=== PATIENT | female | born 1930 | race African-American/Black ===

== ENCOUNTER 2017-02-09 10:11 | Inpatient (IN) | payer MEDICARE, BC ==
[2017-02-09] VITALS (8 sets, daily range): BP systolic 89–112; BP diastolic 30–93
[~2017-02-09] VITALS: Ht 162.6 cm; Wt 67.1 kg
[~2017-02-09 10:11] MED LIST: DOXA1TAB2 PO; LINA145C PO; LORA10TA7 PO; NEBI10TA2 PO; NIFE30TA94 PO; SIMV20TA6 PO
[2017-02-09 11:06] LABS: BASOPHILS % 0.9 % (0.0-2.0); EOSINOPHILS % 0.2 % (0.0-5.0); HEMATOCRIT. 23.5 % (36.0-48.0); HEMOGLOBIN. 7.3 g/dL (12.0-16.0); LYMPHOCYTES % 43.1 % (20.0-50.0); MEAN CORPUSCULAR VOLUME 83.6 fL (81.0-99.0); MEAN PLATELET VOLUME 7.5 fl (7.4-10.4); MONOCYTES % 5.7 % (2.0-8.0); NEUTROPHILS % 50.1 % (40.0-76.0); PLATELET 181 x1000/uL (130-400); RED BLOOD CELL COUNT 2.81 mill/uL (4.2-5.4); RED CELL DISTRIBUTION WIDTH 18.5 % (11.6-14.6)
[2017-02-09 11:19] LABS: CARBON DIOXIDE 31 mEq/L (21-32); CHLORIDE 94 mEq/L (98-107)
[2017-02-09] MEDS: FLUTICASONE PROPIONATE 50MCG/SPRAY BOTTLE BOTHNSTRLS SCH (17:14)
[2017-02-09] MEDS: SEVELAMER CARBONATE 800 MG TABLET PO SCH (17:14)
[2017-02-09] MEDS: CALCIUM ACETATE 667MG CAPSULE PO SCH (17:14)
[2017-02-09] MEDS: LORATADINE 10MG TABLET PO SCH (17:15)
[2017-02-09] MEDS: ACETAMINOPHEN 325MG TABLET PO PRN (17:15)
[2017-02-09] MEDS: FUROSEMIDE 80MG TABLET PO SCH (17:15)
[2017-02-09] MEDS: NEBIVOLOL HCL 5 MG TABLET PO SCH (21:00)
[2017-02-09] MEDS: ATORVASTATIN CALCIUM 20MG TABLET PO SCH (22:27)
[2017-02-10 04:00] VITALS: BP 106/40
[2017-02-10 06:51] LABS: HEMATOCRIT. 25.9 % (36.0-48.0); HEMOGLOBIN. 8.2 g/dL (12.0-16.0); MEAN CORPUSCULAR HEMOGLOBIN 26.1 pg (28.0-32.0); MEAN CORPUSCULAR VOLUME 82.1 fL (81.0-99.0); MEAN PLATELET VOLUME 7.5 fl (7.4-10.4); PLATELET 172 x1000/uL (130-400); RED BLOOD CELL COUNT 3.16 mill/uL (4.2-5.4); RED CELL DISTRIBUTION WIDTH 17.4 % (11.6-14.6)
[2017-02-10 07:27] LABS: T4 FREE 1.23 ng/dL (0.76-1.46)
[2017-02-10 08:00] VITALS: BP 101/43
[2017-02-10] MEDS: NEBIVOLOL HCL 5 MG TABLET PO SCH ×2 (08:27→20:38)
[2017-02-10] MEDS: NIFEDIPINE XL 90MG TAB PO SCH (08:27)
[2017-02-10] MEDS: CALCIUM ACETATE 667MG CAPSULE PO SCH ×3 (08:33→18:13)
[2017-02-10] MEDS: LORATADINE 10MG TABLET PO SCH (08:33)
[2017-02-10] MEDS: FOLIC ACID/VITAMIN B COMP W-C TABLET PO SCH (08:33)
[2017-02-10] MEDS: SEVELAMER CARBONATE 800 MG TABLET PO SCH ×3 (08:33→18:13)
[2017-02-10] MEDS: FLUTICASONE PROPIONATE 50MCG/SPRAY BOTTLE BOTHNSTRLS SCH (08:34)
[2017-02-10] MEDS: FUROSEMIDE 80MG TABLET PO SCH (09:00)
[2017-02-10 13:25] LABS: PLATELET ESTIMATE NORMAL
[2017-02-10 16:00] VITALS: BP 111/35
[2017-02-10] MEDS: ACETAMINOPHEN 325MG TABLET PO PRN (18:13)
[2017-02-10 20:00] VITALS: BP 108/55
[2017-02-10] MEDS: ATORVASTATIN CALCIUM 20MG TABLET PO SCH (21:10)
[2017-02-11] VITALS (9 sets, daily range): BP systolic 109–162; BP diastolic 43–83
[2017-02-11 07:22] LABS: HEMATOCRIT. 25.7 % (36.0-48.0); HEMOGLOBIN. 8.1 g/dL (12.0-16.0); MEAN CORPUSCULAR VOLUME 82.6 fL (81.0-99.0); MEAN PLATELET VOLUME 7.3 fl (7.4-10.4); PLATELET 164 x1000/uL (130-400); RED BLOOD CELL COUNT 3.12 mill/uL (4.2-5.4); RED CELL DISTRIBUTION WIDTH 17.6 % (11.6-14.6)
[2017-02-11] MEDS: SEVELAMER CARBONATE 800 MG TABLET PO SCH ×3 (09:00→18:14)
[2017-02-11] MEDS: FUROSEMIDE 80MG TABLET PO SCH (09:00)
[2017-02-11] MEDS: NIFEDIPINE XL 90MG TAB PO SCH (09:00)
[2017-02-11] MEDS: FLUTICASONE PROPIONATE 50MCG/SPRAY BOTTLE BOTHNSTRLS SCH (09:00)
[2017-02-11] MEDS: NEBIVOLOL HCL 5 MG TABLET PO SCH ×2 (09:00→21:22)
[2017-02-11] MEDS: CALCIUM ACETATE 667MG CAPSULE PO SCH ×3 (09:00→18:14)
[2017-02-11] MEDS: FOLIC ACID/VITAMIN B COMP W-C TABLET PO SCH (09:25)
[2017-02-11] MEDS: LORATADINE 10MG TABLET PO SCH (09:25)
[2017-02-11 16:53] LABS: PLATELET ESTIMATE NORMAL
[2017-02-11] MEDS ORDERED: EPOETIN ALFA 10000UNITS/ML VIAL SUBCUT SCH (21:00)
[2017-02-11] MEDS: ATORVASTATIN CALCIUM 20MG TABLET PO SCH (21:22)
[2017-02-12] VITALS: BP 134/44
[2017-02-12 04:00] VITALS: BP 123/42
[2017-02-12 06:39] LABS: HEMOGLOBIN. 8.9 g/dL (12.0-16.0); MEAN CORPUSCULAR HEMOGLOBIN 26.5 pg (28.0-32.0); MEAN CORPUSCULAR VOLUME 83.8 fL (81.0-99.0); MEAN PLATELET VOLUME 7.4 fl (7.4-10.4); PLATELET 138 x1000/uL (130-400); RED BLOOD CELL COUNT 3.34 mill/uL (4.2-5.4)
[2017-02-12] MEDS: CALCIUM ACETATE 667MG CAPSULE PO SCH ×3 (07:40→18:04)
[2017-02-12] MEDS: SEVELAMER CARBONATE 800 MG TABLET PO SCH ×3 (07:40→18:04)
[2017-02-12 08:00] VITALS: BP 136/57
[2017-02-12] MEDS: FUROSEMIDE 80MG TABLET PO SCH (09:00)
[2017-02-12] MEDS: FLUTICASONE PROPIONATE 50MCG/SPRAY BOTTLE BOTHNSTRLS SCH (09:00)
[2017-02-12] MEDS: NIFEDIPINE XL 90MG TAB PO SCH (09:59)
[2017-02-12] MEDS: LORATADINE 10MG TABLET PO SCH (10:00)
[2017-02-12] MEDS: FOLIC ACID/VITAMIN B COMP W-C TABLET PO SCH (10:00)
[2017-02-12] MEDS: NEBIVOLOL HCL 5 MG TABLET PO SCH ×2 (10:00→21:00)
[2017-02-12 12:00] VITALS: BP 112/41
[2017-02-12 13:09] LABS: IMMUNOGLOBULIN A 29 mg/dL (64-422); IMMUNOGLOBULIN G 552 mg/dL (700-1600); IMMUNOGLOBULIN M 697 mg/dL (26-217)
[2017-02-12 14:34] LABS: PLATELET ESTIMATE NORMAL
[2017-02-12 16:17] VITALS: BP 114/55
[2017-02-12 20:00] VITALS: BP 111/36
[2017-02-12] MEDS: ATORVASTATIN CALCIUM 20MG TABLET PO SCH (21:30)
[2017-02-13] VITALS: BP 116/45
[2017-02-13 04:00] VITALS: BP 126/45
[2017-02-13] MEDS ORDERED: PROPOFOL 200MG/20ML VIAL IV ONE (08:05)
[2017-02-13] MEDS ORDERED: LIDOCAINE HCL 1% 20ML VIAL (Pyxis) INJ ONE (08:05)
[2017-02-13 08:15] LABS: HEMATOCRIT. 28.1 % (36.0-48.0); HEMOGLOBIN. 9.1 g/dL (12.0-16.0); MEAN CORPUSCULAR HEMOGLOBIN 27.2 pg (28.0-32.0); MEAN CORPUSCULAR VOLUME 83.8 fL (81.0-99.0); MEAN PLATELET VOLUME 7.4 fl (7.4-10.4); PLATELET 130 x1000/uL (130-400); RED BLOOD CELL COUNT 3.35 mill/uL (4.2-5.4); RED CELL DISTRIBUTION WIDTH 17.3 % (11.6-14.6)
[2017-02-13] MEDS ORDERED: ONDANSETRON HCL 4MG/2ML VIAL IV PRN (08:30)
[2017-02-13] MEDS ORDERED: MORPHINE SULFATE 2 MG/ML CPJ (NOT FOR IM USE) IV PRN (08:30)
[2017-02-13] MEDS ORDERED: SODIUM CHLORIDE 0.9% 1,000 ML IV SCH (08:30)
[2017-02-13] MEDS: NEBIVOLOL HCL 5 MG TABLET PO SCH ×2 (09:00→20:27)
[2017-02-13] MEDS: NIFEDIPINE XL 90MG TAB PO SCH (09:00)
[2017-02-13 10:58] VITALS: BP 123/45
[2017-02-13] MEDS: LORATADINE 10MG TABLET PO SCH (11:05)
[2017-02-13] MEDS: FOLIC ACID/VITAMIN B COMP W-C TABLET PO SCH (11:05)
[2017-02-13] MEDS: SEVELAMER CARBONATE 800 MG TABLET PO SCH ×2 (11:05→18:09)
[2017-02-13] MEDS: CALCIUM ACETATE 667MG CAPSULE PO SCH ×2 (11:05→18:09)
[2017-02-13] MEDS: FUROSEMIDE 80MG TABLET PO SCH (11:06)
[2017-02-13 11:28] VITALS: BP 121/49
[2017-02-13 15:33] VITALS: BP 116/55
[2017-02-13 19:52] VITALS: BP 117/54
[2017-02-13] MEDS: ATORVASTATIN CALCIUM 20MG TABLET PO SCH (20:26)
[2017-02-13 20:45] LABS: PLATELET ESTIMATE SLIGHTLY DECREASED
[2017-02-14 04:24] LABS: 25-HYDROXY VITAMIN D3 7.9 ng/mL (.)
[2017-03-04] MEDS ORDERED: CALC0.253 PO (09:22)
[2017-03-04] MEDS ORDERED: SEVE800T8 PO (09:22)
[2017-03-04] MEDS ORDERED: NEPVIT PO (17:07)
[2017-03-04] MEDS ORDERED: CALC667T5 PO (17:07)
[2017-03-04] MEDS ORDERED: DULCOEASE PO (17:17)
[2017-03-04] MEDS ORDERED: DEXT15DR5 EACHEYE (17:17)
[2017-03-04] MEDS ORDERED: FLUT9.9S NS (17:17)
== END 2017-02-13 20:40 | disposition home or self-care (01) | DRG 811 ==
LOC: ER 10:11 → EDBEDREQ 11:39 → EDBEDREQTM 11:39 → 8WST 12:21 → ENRESERV 13:51 → 8WST 14:44
PROVIDERS: ADMIT Internal Medicine Pulmonary Disease; ATTEND Internal Medicine Pulmonary Disease
PROC: 30233N1 Transfusion of Nonautologous Red Blood Cells into Peripheral Vein, Percutaneous Approach (ICD-10-PCS; principal; 2017-02-09)
PROC: 07DQ3ZZ Extraction of Sternum Bone Marrow, Percutaneous Approach (ICD-10-PCS; 2017-02-13)
DX: D46.9 Myelodysplastic syndrome, unspecified (principal); N18.6 End stage renal disease; I13.2 Hypertensive heart and chronic kidney disease with heart failure and with stage 5 chronic kidney disease, or end stage renal disease; E46 Unspecified protein-calorie malnutrition; C85.90 Non-Hodgkin lymphoma, unspecified, unspecified site; D58.9 Hereditary hemolytic anemia, unspecified; I42.9 Cardiomyopathy, unspecified; N03.9 Chronic nephritic syndrome with unspecified morphologic changes; R71.0 Precipitous drop in hematocrit; D64.9 Anemia, unspecified; E74.39 Other disorders of intestinal carbohydrate absorption; D72.829 Elevated white blood cell count, unspecified; H91.90 Unspecified hearing loss, unspecified ear; I50.9 Heart failure, unspecified; M10.9 Gout, unspecified; Z82.49 Family history of ischemic heart disease and other diseases of the circulatory system; Z85.528 Personal history of other malignant neoplasm of kidney; Z90.5 Acquired absence of kidney; Z90.710 Acquired absence of both cervix and uterus; Z99.2 Dependence on renal dialysis; Z88.0 Allergy status to penicillin; Z88.1 Allergy status to other antibiotic agents; Z79.899 Other long term (current) drug therapy; Z68.25 Body mass index [BMI] 25.0-25.9, adult
CPT/HCPCS: 36415; 71010; 80048; 80053; 80076; 82270; 82306; 82784; 83010; 83615; 83880; 84134; 84439; 84443; 84550; 85025; 85044; 86334; 86850; 86880; 86900; 86920; 87040; 93005; 97161; 97165; 99285; J0885; J2704; J3490; J7030; J7050; P9016

== ENCOUNTER 2017-03-27 09:34 | Emergency (ER) | payer MEDICARE, BC ==
[~2017-03-27] VITALS: Ht 162.6 cm; Wt 62.0 kg
[~2017-03-27 09:34] MED LIST changes: +CALC0.253 PO; +CALC667T5 PO; +DEXT15DR5 EACHEYE; +DULCOEASE PO; +FLUT9.9S NS; +NEPVIT PO; +SEVE800T8 PO
[2017-03-27] MEDS ORDERED: PANTOPRAZOLE SODIUM 40 MG/VIAL IV ONE (10:15)
[2017-03-27 10:52] LABS: INR 1.2; PARTIAL THROMBOPLASTIN TIME 25.7 sec (23.4-31.0); PROTHROMBIN TIME 12.2 sec (9.4-11.6)
[2017-03-27 10:53] LABS: HEMATOCRIT. 27.7 % (36.0-48.0); HEMOGLOBIN. 8.6 g/dL (12.0-16.0); MEAN CORPUSCULAR HEMOGLOBIN 26.7 pg (28.0-32.0); MEAN CORPUSCULAR VOLUME 86.4 fL (81.0-99.0); MEAN PLATELET VOLUME 7.8 fl (7.4-10.4); PLATELET 83 x1000/uL (130-400); RED BLOOD CELL COUNT 3.21 mill/uL (4.2-5.4); RED CELL DISTRIBUTION WIDTH 17.6 % (11.6-14.6)
[2017-03-27 11:02] LABS: CARBON DIOXIDE 33 mEq/L (21-32); CHLORIDE 95 mEq/L (98-107); PHOSPHORUS 1.3 mg/dL (2.5-4.9); TOTAL IRON BINDING CAPACITY 101 ug/dL (250-450)
[2017-03-27 12:59] LABS: PLATELET ESTIMATE DECREASED
[2017-03-27 13:00] VITALS: BP 129/83
== END 2017-03-27 13:14 | disposition home or self-care (01) ==
LOC: ER 09:50 → CANBEDREQ 13:21
DX: K62.5 Hemorrhage of anus and rectum (principal); D63.1 Anemia in chronic kidney disease; I12.9 Hypertensive chronic kidney disease with stage 1 through stage 4 chronic kidney disease, or unspecified chronic kidney disease; N18.6 End stage renal disease; Z88.0 Allergy status to penicillin; Z88.1 Allergy status to other antibiotic agents; Z99.2 Dependence on renal dialysis
CPT/HCPCS: 36415; 71010; 80053; 83540; 83550; 83605; 83690; 83735; 84100; 85025; 85044; 85610; 85730; 86850; 86900; 86901; 87040; 93005; 96374; 99285; C9113

== ENCOUNTER 2017-04-11 14:44 | Inpatient (IN) | payer MEDICARE, BC ==
[~2017-04-11] VITALS: Ht 160 cm; Wt 63.5 kg
[2017-04-11 16:59] LABS: INR 1.3; PROTHROMBIN TIME 13.6 sec (9.4-11.6)
[2017-04-11 17:01] LABS: CARBON DIOXIDE 34 mEq/L (21-32); CHLORIDE 94 mEq/L (98-107)
[2017-04-11 17:03] LABS: MEAN CORPUSCULAR HEMOGLOBIN 27.4 pg (28.0-32.0); MEAN CORPUSCULAR VOLUME 89.4 fL (81.0-99.0); MEAN PLATELET VOLUME 8.9 fl (7.4-10.4); PLATELET 93 x1000/uL (130-400); RED BLOOD CELL COUNT 2.34 mill/uL (4.2-5.4); RED CELL DISTRIBUTION WIDTH 18.9 % (11.6-14.6)
[2017-04-11 17:10] LABS: HEMOGLOBIN. 6.4 g/dL (12.0-16.0)
[2017-04-11 17:11] LABS: HEMATOCRIT. 20.9 % (36.0-48.0)
[2017-04-11 17:32] LABS: ATYPICAL LYMPHOCYTES 2; PLATELET ESTIMATE DECREASED
[2017-04-12] VITALS (8 sets, daily range): BP systolic 93–144; BP diastolic 29–79
[2017-04-12] MEDS ORDERED: DULCOEASE PO SCH (01:30)
[2017-04-12] MEDS ORDERED: ACETAMINOPHEN 325MG TABLET PO PRN (02:00)
[2017-04-12] MEDS ORDERED: ZOLPIDEM TARTRATE 5MG TABLET PO PRN (02:00)
[2017-04-12] MEDS ORDERED: DOCUSATE SODIUM 100MG CAPSULE PO PRN (03:00)
[2017-04-12 07:33] LABS: MEAN CORPUSCULAR HEMOGLOBIN 27.4 pg (28.0-32.0); MEAN CORPUSCULAR VOLUME 86.6 fL (81.0-99.0); MEAN PLATELET VOLUME 8.1 fl (7.4-10.4); PLATELET 65 x1000/uL (130-400); RED BLOOD CELL COUNT 2.34 mill/uL (4.2-5.4); RED CELL DISTRIBUTION WIDTH 17.6 % (11.6-14.6)
[2017-04-12 07:36] LABS: HEMATOCRIT. 20.2 % (36.0-48.0); HEMOGLOBIN. 6.4 g/dL (12.0-16.0)
[2017-04-12] MEDS: NEBIVOLOL HCL 5 MG TABLET PO SCH (08:10)
[2017-04-12] MEDS: FOLIC ACID/VITAMIN B COMP W-C TABLET PO SCH (08:15)
[2017-04-12] MEDS: LORATADINE 10MG TABLET PO SCH (08:16)
[2017-04-12] MEDS: POLYVINYL ALCOHOL OPHTH DROPS 15ML EACHEYE SCH (08:16)
[2017-04-12] MEDS: FLUTICASONE PROPIONATE 50MCG/SPRAY BOTTLE BOTHNSTRLS SCH (08:18)
[2017-04-12] MEDS ORDERED: MEDICATION NOT ON FORMULARY EA (Fluticasone Propionate (Flonase Allergy Relief) 2 SPR) NS SCH (09:00)
[2017-04-12] MEDS ORDERED: DEXTRAN EACHEYE SCH (09:00)
[2017-04-12] MEDS ORDERED: NEBIVOLOL HCL 20 MG PO SCH (09:00)
[2017-04-12] MEDS ORDERED: [UNRECOGNIZED DRUG - OTHER] EACHEYE SCH (09:00)
[2017-04-12] MEDS ORDERED: MEDICATION NOT ON FORMULARY EA (Nebivolol Hcl (Bystolic) 10 MG) PO SCH (09:00)
[2017-04-12 10:57] LABS: PLATELET ESTIMATE DECREASED
[2017-04-12] MEDS: NIFEDIPINE XL 90MG TAB PO SCH (17:15)
[2017-04-12] MEDS: DOXAZOSIN MESYLATE 2MG TABLET PO SCH (17:16)
[2017-04-12] MEDS ORDERED: MEDICATION NOT ON FORMULARY EA (Doxazosin Mesylate 1 MG) PO SCH (18:00)
[2017-04-12] MEDS ORDERED: MEDICATION NOT ON FORMULARY EA (Simvastatin 20 MG) PO SCH (18:00)
[2017-04-12] MEDS: ATORVASTATIN CALCIUM 10MG TABLET PO SCH (22:08)
[2017-04-13] VITALS (9 sets, daily range): BP systolic 119–138; BP diastolic 40–79
[2017-04-13 07:00] LABS: HEMATOCRIT 23.6 % (36.0-48.0); HEMATOCRIT. 23.6 % (36.0-48.0); HEMOGLOBIN 7.6 g/dL (12.0-16.0); MEAN CORPUSCULAR HEMOGLOBIN 27.8 pg (28.0-32.0); MEAN CORPUSCULAR VOLUME 86.4 fL (81.0-99.0); MEAN PLATELET VOLUME 8.3 fl (7.4-10.4); PLATELET 63 x1000/uL (130-400); RED BLOOD CELL COUNT 2.73 mill/uL (4.2-5.4); RED CELL DISTRIBUTION WIDTH 18.7 % (11.6-14.6)
[2017-04-13 07:28] LABS: HEMOGLOBIN. 7.6 g/dL (12.0-16.0)
[2017-04-13] MEDS: NEBIVOLOL HCL 5 MG TABLET PO SCH (09:00)
[2017-04-13] MEDS: POLYVINYL ALCOHOL OPHTH DROPS 15ML EACHEYE SCH (09:25)
[2017-04-13] MEDS: LORATADINE 10MG TABLET PO SCH (09:33)
[2017-04-13] MEDS: FOLIC ACID/VITAMIN B COMP W-C TABLET PO SCH (09:33)
[2017-04-13] MEDS: FLUTICASONE PROPIONATE 50MCG/SPRAY BOTTLE BOTHNSTRLS SCH (09:35)
[2017-04-13 10:08] LABS: ATYPICAL LYMPHOCYTES 1
[2017-04-13 10:09] LABS: PLATELET ESTIMATE MARKEDLY DECREASED
[2017-04-13] MEDS: DOXAZOSIN MESYLATE 2MG TABLET PO SCH (17:41)
[2017-04-13] MEDS: NIFEDIPINE XL 90MG TAB PO SCH (17:42)
[2017-04-13] MEDS: ATORVASTATIN CALCIUM 10MG TABLET PO SCH (20:37)
[2017-04-14 00:22] VITALS: BP 143/54
[2017-04-14 01:22] VITALS: BP 141/52
[2017-04-14 06:39] LABS: HEMATOCRIT 27.7 % (36.0-48.0); HEMOGLOBIN 8.8 g/dL (12.0-16.0); MEAN CORPUSCULAR VOLUME 85.1 fL (81.0-99.0); PLATELET 65 x1000/uL (130-400); RED BLOOD CELL COUNT 3.26 mill/uL (4.2-5.4); RED CELL DISTRIBUTION WIDTH 18.3 % (11.6-14.6)
[2017-04-14 08:00] VITALS: BP 133/49
[2017-04-14] MEDS: FLUTICASONE PROPIONATE 50MCG/SPRAY BOTTLE BOTHNSTRLS SCH (10:12)
[2017-04-14] MEDS: POLYVINYL ALCOHOL OPHTH DROPS 15ML EACHEYE SCH (10:12)
[2017-04-14] MEDS: LORATADINE 10MG TABLET PO SCH (10:13)
[2017-04-14] MEDS: NEBIVOLOL HCL 5 MG TABLET PO SCH (10:13)
[2017-04-14] MEDS: FOLIC ACID/VITAMIN B COMP W-C TABLET PO SCH (10:13)
[2017-04-14 11:28] VITALS: BP 133/49
[2017-04-14 12:00] VITALS: BP 139/53
== END 2017-04-14 15:30 | disposition home or self-care (01) | DRG 840 ==
LOC: ER 15:34 → 8WST 19:44 → ENRESERV 19:56 → 8WST 04-13 08:44
PROVIDERS: ADMIT Internal Medicine; ATTEND Internal Medicine
PROC: 30233N1 Transfusion of Nonautologous Red Blood Cells into Peripheral Vein, Percutaneous Approach (ICD-10-PCS; principal; 2017-04-11)
DX: C85.90 Non-Hodgkin lymphoma, unspecified, unspecified site (principal); N18.6 End stage renal disease; I12.0 Hypertensive chronic kidney disease with stage 5 chronic kidney disease or end stage renal disease; N03.9 Chronic nephritic syndrome with unspecified morphologic changes; D63.8 Anemia in other chronic diseases classified elsewhere; Z99.2 Dependence on renal dialysis; H91.90 Unspecified hearing loss, unspecified ear; K62.3 Rectal prolapse; M19.90 Unspecified osteoarthritis, unspecified site; E66.9 Obesity, unspecified; Z85.528 Personal history of other malignant neoplasm of kidney; Z86.010 Personal history of colon polyps; Z90.5 Acquired absence of kidney; Z90.710 Acquired absence of both cervix and uterus; Z79.899 Other long term (current) drug therapy; Z88.0 Allergy status to penicillin; Z88.8 Allergy status to other drugs, medicaments and biological substances; Z68.24 Body mass index [BMI] 24.0-24.9, adult
CPT/HCPCS: 36415; 80048; 80053; 83540; 83550; 85025; 85027; 85610; 86850; 86900; 86920; 93970; 99285; A6261; C1893; J7030; J7040; P9016

== ENCOUNTER 2017-05-02 23:00 | Inpatient (IN) | payer MEDICARE, BC ==
[~2017-05-02] VITALS: Ht 162.6 cm; Wt 63.5 kg
[~2017-05-02 23:00] MED LIST changes: -CALC0.253 PO; -CALC667T5 PO; -SEVE800T8 PO
[2017-05-02] MEDS ORDERED: NITROGLYCERIN 0.4MG TABLET SL SL PRN (23:15)
[2017-05-02] MEDS ORDERED: ASPIRIN 81MG TABLET PO ONE (23:15)
[2017-05-02 23:41] LABS: BG BASE EXCESS -4.6 mmol/L (-2.0-2.0); BG CARBOXYHEMOGLOBIN 0.6 % (0.5-1.5); BG DEOXYHEMOGLOBIN 1.4 % (0.0-5.0); BG FRACTION INSPIRED OXYGEN 100; BG HCO3 ACT 20.2 mmol/L (22.0-26.0); BG METHEMOGLOBIN 0.7 % (0.0-1.5); BG OXYGEN SATURATION 98.6 % (92.0-98.5); BG OXYHEMOGLOBIN 97.3 % (94.0-97.0); BG PCO2 35.8 mmHg (35.0-45.0); BG PH 7.369 (7.350-7.450); BG PO2 133.4 mmHg (75.0-100.0); BG SAMPLE SITE RIGHT BRACHIAL; BG TOTAL HEMOGLOBIN 7.8 g/dL (12.0-18.0); BG VENT MODE MASK - NRB
[2017-05-03 00:09] LABS: HEMATOCRIT. 23.9 % (36.0-48.0); HEMOGLOBIN. 7.1 g/dL (12.0-16.0); MEAN CORPUSCULAR HEMOGLOBIN 27.7 pg (28.0-32.0); MEAN CORPUSCULAR VOLUME 93.4 fL (81.0-99.0); MEAN PLATELET VOLUME 8.4 fl (7.4-10.4); PLATELET 53 x1000/uL (130-400); RED BLOOD CELL COUNT 2.56 mill/uL (4.2-5.4); RED CELL DISTRIBUTION WIDTH 20.3 % (11.6-14.6)
[2017-05-03 00:18] LABS: INR 1.2; PROTHROMBIN TIME 12.9 sec (9.4-11.6)
[2017-05-03 00:28] LABS: CARBON DIOXIDE 28 mEq/L (21-32); CHLORIDE 94 mEq/L (98-107); TROPONIN I < 0.02 ng/mL (0.00-0.04)
[2017-05-03] MEDS ORDERED: ALBUTEROL (0.5%) 2.5MG/0.5ML NEB HHN ONE (01:45)
[2017-05-03 07:04] LABS: ATYPICAL LYMPHOCYTES 7; PLATELET ESTIMATE DECREASED
[2017-05-03] MEDS ORDERED: DOCUSATE SODIUM 100MG CAPSULE PO PRN (11:15)
[2017-05-03] MEDS ORDERED: CLONIDINE 0.1MG TABLET PO PRN (11:15)
[2017-05-03] MEDS ORDERED: MAGNESIUM/ALUMINUM HYDROXIDE/SIMETHICONE 30ML UDC PO PRN (11:15)
[2017-05-03] MEDS ORDERED: ENOXAPARIN 40MG/0.4ML SYR SUBCUT SCH (11:15)
[2017-05-03] MEDS ORDERED: HYDROCODONE/ACETAMINOPHEN 5/325MG TABLET PO PRN (11:15)
[2017-05-03] MEDS ORDERED: IPRATROPIUM/ALBUTEROL 0.5-3(2.5)MG/3ML NEB INH PRN (11:15)
[2017-05-03] MEDS ORDERED: ACETAMINOPHEN 650MG SUPP PR PRN (11:15)
[2017-05-03] MEDS ORDERED: DIPHENHYDRAMINE 50MG/ML VIAL IV PRN (11:15)
[2017-05-03] MEDS ORDERED: ONDANSETRON HCL 4MG/2ML VIAL IV PRN (11:15)
[2017-05-03] MEDS ORDERED: GUAIFENESIN 200MG/10ML SUGAR FREE UDC PO PRN (11:15)
[2017-05-03] MEDS ORDERED: ACETAMINOPHEN 650MG/20.3ML UDC GT PRN (11:15)
[2017-05-03 11:53] LABS: T4 FREE 1.16 ng/dL (0.76-1.46)
[2017-05-03 14:39] LABS: CREATINE KINASE MB FRACTION 0.5 ng/mL (0.5-3.6); TROPONIN I 0.07 ng/mL (0.00-0.04)
[2017-05-03 18:31] LABS: MEAN CORPUSCULAR HEMOGLOBIN 28.1 pg (28.0-32.0); MEAN CORPUSCULAR VOLUME 90.7 fL (81.0-99.0); MEAN PLATELET VOLUME 8.2 fl (7.4-10.4); RED BLOOD CELL COUNT 2.03 mill/uL (4.2-5.4)
[2017-05-03 18:36] LABS: HEMATOCRIT. 18.4 % (36.0-48.0); PLATELET 34 x1000/uL (130-400)
[2017-05-03 18:36] LABS: BG BASE EXCESS 6.8 mmol/L (-2.0-2.0); BG CARBOXYHEMOGLOBIN 0.7 % (0.5-1.5); BG DEOXYHEMOGLOBIN 1.8 % (0.0-5.0); BG FRACTION INSPIRED OXYGEN 28; BG HCO3 ACT 30.9 mmol/L (22.0-26.0); BG METHEMOGLOBIN 0.7 % (0.0-1.5); BG OXYGEN SATURATION 98.2 % (92.0-98.5); BG OXYHEMOGLOBIN 96.8 % (94.0-97.0); BG PCO2 42.6 mmHg (35.0-45.0); BG PH 7.479 (7.350-7.450); BG PO2 109.1 mmHg (75.0-100.0); BG SAMPLE SITE RIGHT BRACHIAL; BG TOTAL HEMOGLOBIN 6.4 g/dL (12.0-18.0); BG VENT MODE NASAL CANNULA
[2017-05-03 18:37] LABS: CHLORIDE 97 mEq/L (98-107); HEMOGLOBIN. 5.7 g/dL (12.0-16.0)
[2017-05-03 18:46] LABS: CARBON DIOXIDE 30 mEq/L (21-32)
[2017-05-03 20:01] LABS: PLATELET ESTIMATE MARKEDLY DECREASED
[2017-05-03 20:30] VITALS: BP 109/41
[2017-05-03 20:40] VITALS: BP 109/41
[2017-05-03] MEDS: INSULIN LISPRO 100 UNITS/ML SUBCUT SCH (21:00)
[2017-05-03] MEDS: BLOOD SUGAR DIAGNOSTIC STRIP TEST SCH (21:00)
[2017-05-03] MEDS ORDERED: DEXTROSE 50% WATER 50ML SYRINGE IV PRN (21:00)
[2017-05-03] MEDS: SODIUM CHLORIDE 0.9% INJ 3ML FLUSH IVF SCH (22:00)
[2017-05-03 23:47] LABS: CREATINE KINASE 21 IU/L (26-192); CREATINE KINASE MB FRACTION < 0.5 ng/mL (0.5-3.6); TROPONIN I 0.06 ng/mL (0.00-0.04)
[2017-05-04] VITALS (16 sets, daily range): BP systolic 98–122; BP diastolic 35–87
[2017-05-04] MEDS: SODIUM CHLORIDE 0.9% INJ 3ML FLUSH IVF SCH ×2 (05:19→14:00)
[2017-05-04] MEDS: INSULIN LISPRO 100 UNITS/ML SUBCUT SCH (06:12)
[2017-05-04] MEDS: BLOOD SUGAR DIAGNOSTIC STRIP TEST SCH (06:12)
[2017-05-04 07:29] LABS: HEMATOCRIT. 23.3 % (36.0-48.0); HEMOGLOBIN. 7.4 g/dL (12.0-16.0); MEAN CORPUSCULAR HEMOGLOBIN 28.6 pg (28.0-32.0); MEAN CORPUSCULAR VOLUME 89.6 fL (81.0-99.0); MEAN PLATELET VOLUME 8.7 fl (7.4-10.4); RED CELL DISTRIBUTION WIDTH 18.7 % (11.6-14.6)
[2017-05-04] MEDS: SEVELAMER CARBONATE 800 MG TABLET PO SCH ×4 (07:40→17:37)
[2017-05-04 07:58] LABS: PLATELET 40 x1000/uL (130-400)
[2017-05-04] MEDS: FOLIC ACID/VITAMIN B COMP W-C TABLET PO SCH ×2 (08:08→17:32)
[2017-05-04 08:16] LABS: CHLORIDE 96 mEq/L (98-107)
[2017-05-04 08:26] LABS: CARBON DIOXIDE 28 mEq/L (21-32); CREATINE KINASE 21 IU/L (26-192); CREATINE KINASE MB FRACTION < 0.5 ng/mL (0.5-3.6); HDL CHOLESTEROL 21 mg/dL (40-59); LDL CHOLESTEROL 122 mg/dL (5-100); TROPONIN I 0.05 ng/mL (0.00-0.04)
[2017-05-04 10:47] LABS: PLATELET ESTIMATE MARKEDLY DECREASED
[2017-05-04] MEDS ORDERED: CEFTRIAXONE 1 G PREMIX 50 ML IV SCH (11:15)
[2017-05-04] MEDS: ACETAMINOPHEN 325MG TABLET PO PRN (12:13)
[2017-05-04] MEDS ORDERED: LEVOFLOXACIN 250MG PREMIX 50 ML IV SCH (18:30)
[2017-05-05] VITALS: BP 126/43
[2017-05-05] MEDS: LEVOFLOXACIN 250MG PREMIX 50 ML IV SCH (00:21)
[2017-05-05] MEDS: SODIUM CHLORIDE 0.9% INJ 3ML FLUSH IVF SCH ×4 (00:21→22:09)
[2017-05-05] MEDS: IPRATROPIUM/ALBUTEROL 0.5-3(2.5)MG/3ML NEB INH SCH ×3 (02:01→22:03)
[2017-05-05 04:00] VITALS: BP 128/39
[2017-05-05 06:30] LABS: HEMATOCRIT. 27.1 % (36.0-48.0); HEMOGLOBIN. 8.6 g/dL (12.0-16.0); MEAN CORPUSCULAR HEMOGLOBIN 26.5 pg (28.0-32.0); MEAN PLATELET VOLUME 8.3 fl (7.4-10.4); RED BLOOD CELL COUNT 3.23 mill/uL (4.2-5.4); RED CELL DISTRIBUTION WIDTH 22.9 % (11.6-14.6)
[2017-05-05 06:48] LABS: PLATELET 39 x1000/uL (130-400)
[2017-05-05 08:00] VITALS: BP 121/48
[2017-05-05 12:00] VITALS: BP 142/75
[2017-05-05] MEDS: SEVELAMER CARBONATE 800 MG TABLET PO SCH ×2 (12:50→17:40)
[2017-05-05] MEDS: CARVEDILOL 3.125 MG TABLET PO SCH ×2 (12:54→20:36)
[2017-05-05 14:26] LABS: PLATELET ESTIMATE MARKEDLY DECREASED
[2017-05-05] MEDS: ACETAMINOPHEN 325MG TABLET PO PRN (15:38)
[2017-05-05 16:00] VITALS: BP 114/39
[2017-05-05 20:13] VITALS: BP 118/40
[2017-05-05] MEDS ORDERED: EPOETIN ALFA 10000UNITS/ML VIAL SUBCUT SCH (21:00)
[2017-05-06] VITALS (7 sets, daily range): BP systolic 116–175; BP diastolic 38–78
[2017-05-06 07:22] LABS: HEMATOCRIT. 23.6 % (36.0-48.0); HEMOGLOBIN. 7.7 g/dL (12.0-16.0); MEAN CORPUSCULAR HEMOGLOBIN 27.5 pg (28.0-32.0); MEAN CORPUSCULAR VOLUME 84.3 fL (81.0-99.0); MEAN PLATELET VOLUME 8.7 fl (7.4-10.4); RED CELL DISTRIBUTION WIDTH 22.6 % (11.6-14.6)
[2017-05-06 08:31] LABS: PLATELET 31 x1000/uL (130-400)
[2017-05-06] MEDS: FOLIC ACID/VITAMIN B COMP W-C TABLET PO SCH ×2 (09:00→09:16)
[2017-05-06] MEDS: CARVEDILOL 3.125 MG TABLET PO SCH ×2 (09:00→20:39)
[2017-05-06] MEDS: SEVELAMER CARBONATE 800 MG TABLET PO SCH ×2 (09:16→17:40)
[2017-05-06] MEDS: LOSARTAN POTASSIUM 25 MG TABLET PO SCH (09:45)
[2017-05-06] MEDS: IPRATROPIUM/ALBUTEROL 0.5-3(2.5)MG/3ML NEB INH SCH (12:58)
[2017-05-06 19:18] LABS: PLATELET ESTIMATE MARKEDLY DECREASED
[2017-05-06] MEDS: LEVOFLOXACIN 250MG PREMIX 50 ML IV SCH (19:45)
[2017-05-06] MEDS: SODIUM CHLORIDE 0.9% INJ 3ML FLUSH IVF SCH (21:38)
[2017-05-07] VITALS: BP 120/39
[2017-05-07 04:00] VITALS: BP 126/40
[2017-05-07] MEDS: SODIUM CHLORIDE 0.9% INJ 3ML FLUSH IVF SCH (06:09)
[2017-05-07 06:39] LABS: HEMATOCRIT. 27.4 % (36.0-48.0); HEMOGLOBIN. 8.8 g/dL (12.0-16.0); MEAN CORPUSCULAR HEMOGLOBIN 27.1 pg (28.0-32.0); MEAN CORPUSCULAR VOLUME 84.6 fL (81.0-99.0); MEAN PLATELET VOLUME 8.3 fl (7.4-10.4); RED BLOOD CELL COUNT 3.24 mill/uL (4.2-5.4); RED CELL DISTRIBUTION WIDTH 20.9 % (11.6-14.6)
[2017-05-07 06:48] LABS: PLATELET 31 x1000/uL (130-400)
[2017-05-07] MEDS: SEVELAMER CARBONATE 800 MG TABLET PO SCH (07:40)
[2017-05-07 08:28] VITALS: BP 133/55
[2017-05-07] MEDS: IPRATROPIUM/ALBUTEROL 0.5-3(2.5)MG/3ML NEB INH SCH (08:59)
[2017-05-07] MEDS: FOLIC ACID/VITAMIN B COMP W-C TABLET PO SCH ×2 (09:00→09:03)
[2017-05-07] MEDS: CARVEDILOL 3.125 MG TABLET PO SCH (09:02)
[2017-05-07] MEDS: LOSARTAN POTASSIUM 25 MG TABLET PO SCH (09:03)
[2017-05-07 10:27] VITALS: BP 133/55
[2017-05-07 11:00] VITALS: BP 127/40
[2017-05-07 16:37] LABS: PLATELET ESTIMATE MARKEDLY DECREASED
== END 2017-05-07 11:25 | disposition home or self-care (01) | DRG 871 ==
LOC: ER 23:00 → 8WST 05-03 02:29 → ENRESERV 05-03 18:58 → 8WST 05-03 23:57
PROVIDERS: ADMIT Family Medicine; ATTEND Internal Medicine
PROC: 30233N1 Transfusion of Nonautologous Red Blood Cells into Peripheral Vein, Percutaneous Approach (ICD-10-PCS; principal; 2017-05-04)
PROC: 5A1D70Z Performance of Urinary Filtration, Intermittent, Less than 6 Hours Per Day (ICD-10-PCS; 2017-05-04)
PROC: 5A1D70Z Performance of Urinary Filtration, Intermittent, Less than 6 Hours Per Day (ICD-10-PCS; 2017-05-06)
DX: A41.9 Sepsis, unspecified organism (principal); I50.33 Acute on chronic diastolic (congestive) heart failure; J84.9 Interstitial pulmonary disease, unspecified; I13.2 Hypertensive heart and chronic kidney disease with heart failure and with stage 5 chronic kidney disease, or end stage renal disease; E11.22 Type 2 diabetes mellitus with diabetic chronic kidney disease; C85.10 Unspecified B-cell lymphoma, unspecified site; D69.6 Thrombocytopenia, unspecified; N18.6 End stage renal disease; N03.9 Chronic nephritic syndrome with unspecified morphologic changes; M19.90 Unspecified osteoarthritis, unspecified site; R06.03 Acute respiratory distress; K62.3 Rectal prolapse; E78.5 Hyperlipidemia, unspecified; D64.9 Anemia, unspecified; Z99.2 Dependence on renal dialysis; Z90.5 Acquired absence of kidney; Z90.710 Acquired absence of both cervix and uterus; Z79.899 Other long term (current) drug therapy; Z79.51 Long term (current) use of inhaled steroids; Z88.0 Allergy status to penicillin; Z88.1 Allergy status to other antibiotic agents; Z86.010 Personal history of colon polyps; Z85.528 Personal history of other malignant neoplasm of kidney
CPT/HCPCS: 36415; 36430; 36600; 71045; 80048; 80053; 80061; 82270; 82375; 82550; 82553; 82805; 83036; 83880; 84439; 84443; 84484; 85025; 85379; 85610; 86850; 86900; 86920; 87804; 93005; 93306; 93970; 94640; 97162; 99291; C1893; J0885; J1956; J7030; J7040; J7050; J7611; J7620; P9016

== ENCOUNTER 2017-05-26 13:02 | Inpatient (IN) | payer MEDICARE, BC ==
[~2017-05-26] VITALS: Ht 162.6 cm; Wt 62.1 kg
[~2017-05-26 13:02] MED LIST changes: -DEXT15DR5 EACHEYE; -DOXA1TAB2 PO; -LINA145C PO; -LORA10TA7 PO
[2017-05-26 14:32] LABS: MEAN CORPUSCULAR HEMOGLOBIN 27.7 pg (28.0-32.0); MEAN CORPUSCULAR VOLUME 85.3 fL (81.0-99.0); MEAN PLATELET VOLUME 9.2 fl (7.4-10.4); RED BLOOD CELL COUNT 1.89 mill/uL (4.2-5.4); RED CELL DISTRIBUTION WIDTH 24.1 % (11.6-14.6)
[2017-05-26 14:36] LABS: HEMATOCRIT. 16.1 % (36.0-48.0); HEMOGLOBIN. 5.2 g/dL (12.0-16.0); PLATELET 19 x1000/uL (130-400)
[2017-05-26 14:55] LABS: CHLORIDE 96 mEq/L (98-107)
[2017-05-26 15:26] LABS: PLATELET ESTIMATE MARKEDLY DECREASED
[2017-05-26] MEDS ORDERED: NITROGLYCERIN OINT 1GM/INCH UDPKT TD ONE (15:30)
[2017-05-26] MEDS ORDERED: ALLO300T2 PO (16:13)
[2017-05-27] VITALS (9 sets, daily range): BP systolic 99–138; BP diastolic 29–48
[2017-05-27] MEDS: FOLIC ACID/VITAMIN B COMP W-C TABLET PO SCH (09:00)
[2017-05-27 10:13] LABS: HEMATOCRIT. 23.6 % (36.0-48.0); HEMOGLOBIN. 7.9 g/dL (12.0-16.0); MEAN CORPUSCULAR HEMOGLOBIN 28.6 pg (28.0-32.0); MEAN CORPUSCULAR VOLUME 85.3 fL (81.0-99.0); MEAN PLATELET VOLUME 9.5 fl (7.4-10.4); RED BLOOD CELL COUNT 2.77 mill/uL (4.2-5.4); RED CELL DISTRIBUTION WIDTH 19.3 % (11.6-14.6)
[2017-05-27 10:18] LABS: PLATELET 17 x1000/uL (130-400)
[2017-05-27] MEDS ORDERED: METOCLOPRAMIDE HCL 10MG/2ML VIAL IV PRN (10:30)
[2017-05-27 10:38] LABS: T4 FREE 1.05 ng/dL (0.76-1.46)
[2017-05-27 10:39] LABS: PHOSPHORUS 3.5 mg/dL (2.5-4.9)
[2017-05-27 10:44] LABS: ATYPICAL LYMPHOCYTES 3
[2017-05-27 10:45] LABS: PLATELET ESTIMATE MARKEDLY DECREASED
[2017-05-27] MEDS ORDERED: ONDANSETRON HCL 4MG/2ML INJ IV PRN (11:00)
[2017-05-27] MEDS ORDERED: FLUTICASONE PROPIONATE 50MCG/SPRAY BOTTLE BOTHNSTRLS PRN (12:00)
[2017-05-27] MEDS: MEGESTROL ACETATE 400 MG/10 ML UDC PO SCH (13:18)
[2017-05-27] MEDS: EPOETIN ALFA 10000UNITS/ML VIAL SUBCUT SCH (20:53)
[2017-05-28] VITALS: BP 111/35
[2017-05-28 04:00] VITALS: BP 122/39
[2017-05-28 07:02] LABS: HEMATOCRIT. 26.6 % (36.0-48.0); HEMOGLOBIN. 8.8 g/dL (12.0-16.0); MEAN CORPUSCULAR HEMOGLOBIN 28.6 pg (28.0-32.0); MEAN CORPUSCULAR VOLUME 86.5 fL (81.0-99.0); MEAN PLATELET VOLUME 9.3 fl (7.4-10.4); RED BLOOD CELL COUNT 3.08 mill/uL (4.2-5.4); RED CELL DISTRIBUTION WIDTH 18.7 % (11.6-14.6)
[2017-05-28 08:00] VITALS: BP 132/38
[2017-05-28 08:01] LABS: PLATELET 17 x1000/uL (130-400)
[2017-05-28] MEDS: MEGESTROL ACETATE 400 MG/10 ML UDC PO SCH (08:25)
[2017-05-28] MEDS: FOLIC ACID/VITAMIN B COMP W-C TABLET PO SCH (08:25)
[2017-05-28] MEDS ORDERED: ALLOPURINOL 300 MG TABLET PO SCH (10:00)
[2017-05-28] MEDS ORDERED: BISACODYL 5MG TABLET PO PRN (10:00)
[2017-05-28 10:12] LABS: PLATELET ESTIMATE MARKEDLY DECREASED
[2017-05-28] MEDS: NEBIVOLOL HCL 5 MG TABLET PO SCH (10:14)
[2017-05-28 12:00] VITALS: BP 129/59
[2017-05-28 16:00] VITALS: BP 89/57
[2017-05-28] MEDS ORDERED: LACTULOSE 20G/30ML UDC PO NR (16:30)
[2017-05-28] MEDS: LEVOTHYROXINE SODIUM 25MCG TABLET PO SCH (17:21)
[2017-05-28] MEDS ORDERED: MEDICATION NOT ON FORMULARY EA (Simvastatin 20 MG) PO SCH (18:00)
[2017-05-28 20:00] VITALS: BP 128/42
[2017-05-28] MEDS: ATORVASTATIN CALCIUM 10MG TABLET PO SCH (21:59)
[2017-05-29] VITALS: BP 121/41
[2017-05-29 04:00] VITALS: BP 116/51
[2017-05-29] MEDS: LEVOTHYROXINE SODIUM 25MCG TABLET PO SCH (06:49)
[2017-05-29] MEDS ORDERED: NEBIVOLOL HCL 5 MG TABLET PO SCH (07:40)
[2017-05-29 08:00] VITALS: BP 121/40
[2017-05-29] MEDS: NEBIVOLOL HCL 5 MG TABLET PO SCH (09:00)
[2017-05-29 12:00] VITALS: BP 112/85
[2017-05-29 12:14] LABS: HEMATOCRIT. 24.8 % (36.0-48.0); HEMOGLOBIN. 8.4 g/dL (12.0-16.0); MEAN CORPUSCULAR HEMOGLOBIN 29.5 pg (28.0-32.0); MEAN CORPUSCULAR VOLUME 86.6 fL (81.0-99.0); MEAN PLATELET VOLUME 9.1 fl (7.4-10.4); RED BLOOD CELL COUNT 2.86 mill/uL (4.2-5.4); RED CELL DISTRIBUTION WIDTH 19.6 % (11.6-14.6)
[2017-05-29 12:33] LABS: PLATELET 14 x1000/uL (130-400)
[2017-05-29 13:00] LABS: PHOSPHORUS 1.5 mg/dL (2.5-4.9)
[2017-05-29 13:39] LABS: ATYPICAL LYMPHOCYTES 6
[2017-05-29 13:41] LABS: PLATELET ESTIMATE MARKEDLY DECREASED
[2017-05-29] MEDS: MEGESTROL ACETATE 400 MG/10 ML UDC PO SCH (15:53)
[2017-05-29] MEDS: FOLIC ACID/VITAMIN B COMP W-C TABLET PO SCH (15:53)
[2017-05-29] MEDS: ALLOPURINOL 100 MG TABLET PO SCH (15:53)
[2017-05-29] MEDS ORDERED: SODIUM PHOS,M-BASIC-D-BASIC 20 MM in DEXT 5% WATER 243.3333 ML IV NR (16:00)
[2017-05-29 16:12] VITALS: BP 112/85
[2017-05-29 19:55] LABS: T4 FREE 1.15 ng/dL (0.76-1.46)
[2017-05-29 20:00] VITALS: BP 114/36
[2017-05-29] MEDS: ATORVASTATIN CALCIUM 10MG TABLET PO SCH (21:10)
[2017-05-29] MEDS: EPOETIN ALFA 10000UNITS/ML VIAL SUBCUT SCH (21:11)
[2017-05-29 23:33] LABS: CREATINE KINASE 10 IU/L (26-192); CREATINE KINASE MB FRACTION < 0.5 ng/mL (0.5-3.6)
[2017-05-30] VITALS (9 sets, daily range): BP systolic 97–134; BP diastolic 32–67
[2017-05-30] MEDS ORDERED: ACETAMINOPHEN 650MG/20.3ML UDC PO SCH (02:45)
[2017-05-30] MEDS: LEVOTHYROXINE SODIUM 25MCG TABLET PO SCH (07:37)
[2017-05-30] MEDS: NEBIVOLOL HCL 5 MG TABLET PO SCH (09:00)
[2017-05-30] MEDS: MEGESTROL ACETATE 400 MG/10 ML UDC PO SCH (09:44)
[2017-05-30] MEDS: FOLIC ACID/VITAMIN B COMP W-C TABLET PO SCH (09:44)
[2017-05-30] MEDS: ALLOPURINOL 100 MG TABLET PO SCH (09:44)
[2017-05-30] MEDS ORDERED: PHENOL/SODIUM PHENOLATE 1.4% SRPAY 177ML MM ONE (10:00)
[2017-05-30] MEDS ORDERED: GUAIFENESIN-DM 200MG-20MG/10ML UDC PO PRN (10:00)
[2017-05-30 10:19] LABS: CREATINE KINASE 14 IU/L (26-192); CREATINE KINASE MB FRACTION < 0.5 ng/mL (0.5-3.6); PHOSPHORUS 1.6 mg/dL (2.5-4.9)
[2017-05-30] MEDS ORDERED: CEFAZOLIN 1000MG PREMIX 50 ML IV ONE (11:45)
[2017-05-30] MEDS ORDERED: LEVOFLOXACIN 250MG PREMIX 50 ML IV SCH (12:00)
[2017-05-30] MEDS ORDERED: SIMETHICONE 40 MG/0.6 ML 30ML ONE (14:13)
[2017-05-30] MEDS ORDERED: SODIUM CHLORIDE 0.9% 10ML VIAL ONE (14:13)
[2017-05-30] MEDS ORDERED: MIDAZOLAM HCL 5 MG/5 ML VIAL ONE (14:20)
[2017-05-30] MEDS ORDERED: FENTANYL CITRATE/PF 50MCG/ML 2ML VIAL ONE (14:20)
[2017-05-30] MEDS ORDERED: MIDAZOLAM HCL 5 MG/5 ML VIAL IV PRN (15:24)
[2017-05-30 16:35] LABS: CREATINE KINASE 10 IU/L (26-192); CREATINE KINASE MB FRACTION < 0.5 ng/mL (0.5-3.6)
[2017-05-30] MEDS: ACETAMINOPHEN 325MG TABLET NG PRN ×2 (17:36→21:11)
[2017-05-30] MEDS: ATORVASTATIN CALCIUM 10MG TABLET PO SCH (21:10)
[2017-05-31] VITALS: BP 99/54
[2017-05-31] MEDS: ACETAMINOPHEN 325MG TABLET NG PRN ×2 (03:06→18:50)
[2017-05-31 04:00] VITALS: BP 105/39
[2017-05-31] MEDS: LEVOTHYROXINE SODIUM 25MCG TABLET PO SCH (06:17)
[2017-05-31 06:31] LABS: HEMATOCRIT. 25.4 % (36.0-48.0); HEMOGLOBIN. 8.6 g/dL (12.0-16.0); MEAN CORPUSCULAR VOLUME 86.2 fL (81.0-99.0); MEAN PLATELET VOLUME 8.5 fl (7.4-10.4); RED BLOOD CELL COUNT 2.95 mill/uL (4.2-5.4); RED CELL DISTRIBUTION WIDTH 19.5 % (11.6-14.6)
[2017-05-31 06:44] LABS: INR 1.3; PARTIAL THROMBOPLASTIN TIME 31.9 sec (23.4-31.0); PROTHROMBIN TIME 14.1 sec (9.4-11.6)
[2017-05-31 07:01] LABS: PLATELET 30 x1000/uL (130-400)
[2017-05-31 08:00] VITALS: BP 119/51
[2017-05-31] MEDS: MEGESTROL ACETATE 400 MG/10 ML UDC PO SCH (08:20)
[2017-05-31] MEDS: ALLOPURINOL 100 MG TABLET PO SCH (08:20)
[2017-05-31] MEDS: FOLIC ACID/VITAMIN B COMP W-C TABLET PO SCH (08:20)
[2017-05-31] MEDS: NEBIVOLOL HCL 5 MG TABLET PO SCH (08:20)
[2017-05-31 12:00] VITALS: BP 84/39
[2017-05-31 12:36] LABS: PLATELET ESTIMATE MARKEDLY DECREASED
[2017-05-31 12:38] LABS: ATYPICAL LYMPHOCYTES 2
[2017-05-31 16:00] VITALS: BP 93/38
[2017-05-31 20:00] VITALS: BP 97/39
[2017-05-31] MEDS: ATORVASTATIN CALCIUM 10MG TABLET PO SCH (20:35)
[2017-05-31] MEDS: EPOETIN ALFA 10000UNITS/ML VIAL SUBCUT SCH (20:35)
[2017-05-31] MEDS: PHENOL/SODIUM PHENOLATE 1.4% SRPAY 177ML MM PRN (21:48)
[2017-06-01] VITALS: BP 97/30
[2017-06-01] MEDS: ACETAMINOPHEN 325MG TABLET NG PRN ×3 (03:29→20:59)
[2017-06-01 04:00] VITALS: BP 105/32
[2017-06-01] MEDS: LEVOTHYROXINE SODIUM 25MCG TABLET PO SCH (06:23)
[2017-06-01 08:00] VITALS: BP 102/31
[2017-06-01] MEDS: FOLIC ACID/VITAMIN B COMP W-C TABLET PO SCH (09:21)
[2017-06-01] MEDS: ALLOPURINOL 100 MG TABLET PO SCH (09:21)
[2017-06-01] MEDS: MEGESTROL ACETATE 400 MG/10 ML UDC PO SCH (09:22)
[2017-06-01 12:00] VITALS: BP 94/57
[2017-06-01 16:00] VITALS: BP 112/41
[2017-06-01 20:00] VITALS: BP 110/34
[2017-06-01] MEDS: ATORVASTATIN CALCIUM 10MG TABLET PO SCH (20:58)
[2017-06-01] MEDS: PHENOL/SODIUM PHENOLATE 1.4% SRPAY 177ML MM PRN (20:58)
[2017-06-02] VITALS (9 sets, daily range): BP systolic 104–135; BP diastolic 28–50
[2017-06-02] MEDS: LEVOTHYROXINE SODIUM 25MCG TABLET PO SCH (06:25)
[2017-06-02 06:46] LABS: HEMATOCRIT. 23.3 % (36.0-48.0); MEAN CORPUSCULAR HEMOGLOBIN 29.6 pg (28.0-32.0); MEAN CORPUSCULAR VOLUME 86.7 fL (81.0-99.0); MEAN PLATELET VOLUME 9.7 fl (7.4-10.4); RED BLOOD CELL COUNT 2.69 mill/uL (4.2-5.4)
[2017-06-02 07:54] LABS: PLATELET 19 x1000/uL (130-400)
[2017-06-02] MEDS: MEGESTROL ACETATE 400 MG/10 ML UDC PO SCH (08:40)
[2017-06-02] MEDS: ACETAMINOPHEN 325MG TABLET NG PRN ×2 (08:40→22:11)
[2017-06-02] MEDS: FOLIC ACID/VITAMIN B COMP W-C TABLET PO SCH (08:40)
[2017-06-02] MEDS: ALLOPURINOL 100 MG TABLET PO SCH (08:41)
[2017-06-02 14:17] LABS: ATYPICAL LYMPHOCYTES 1; PLATELET ESTIMATE MARKEDLY DECREASED
[2017-06-02 14:50] LABS: PHOSPHORUS 0.5 mg/dL (2.5-4.9)
[2017-06-02] MEDS ORDERED: SODIUM PHOS,M-BASIC-D-BASIC 20 MM in DEXT 5% WATER 243.3333 ML IV ONE (21:00)
[2017-06-02] MEDS: ATORVASTATIN CALCIUM 10MG TABLET PO SCH (21:44)
[2017-06-03] VITALS (9 sets, daily range): BP systolic 100–119; BP diastolic 30–97
[2017-06-03] MEDS: ACETAMINOPHEN 325MG TABLET NG PRN ×3 (04:29→16:20)
[2017-06-03 06:33] LABS: HEMATOCRIT. 21.6 % (36.0-48.0); HEMOGLOBIN. 7.4 g/dL (12.0-16.0); MEAN CORPUSCULAR HEMOGLOBIN 29.7 pg (28.0-32.0); MEAN CORPUSCULAR VOLUME 86.8 fL (81.0-99.0); MEAN PLATELET VOLUME 7.5 fl (7.4-10.4); RED BLOOD CELL COUNT 2.49 mill/uL (4.2-5.4); RED CELL DISTRIBUTION WIDTH 20.8 % (11.6-14.6)
[2017-06-03] MEDS: LEVOTHYROXINE SODIUM 25MCG TABLET PO SCH (06:54)
[2017-06-03 06:56] LABS: PLATELET 29 x1000/uL (130-400)
[2017-06-03 07:01] LABS: PHOSPHORUS 1.4 mg/dL (2.5-4.9)
[2017-06-03] MEDS: ALLOPURINOL 100 MG TABLET PO SCH (09:04)
[2017-06-03] MEDS: FOLIC ACID/VITAMIN B COMP W-C TABLET PO SCH (09:04)
[2017-06-03] MEDS: MEGESTROL ACETATE 400 MG/10 ML UDC PO SCH (09:04)
[2017-06-03] MEDS ORDERED: SODIUM PHOS,M-BASIC-D-BASIC 20 MM in DEXT 5% WATER 243.3333 ML IV NR (10:30)
[2017-06-03] MEDS ORDERED: NA PHOS,M-B/NA PHOS,DI-BA ENEMA 118ML PR NR (14:00)
[2017-06-03] MEDS ORDERED: PROMETHAZINE/DEXTROMETHORPHAN 6.25-15MG/5ML BOTTLE 120ML PO PRN (16:00)
[2017-06-03 16:32] LABS: PLATELET ESTIMATE MARKEDLY DECREASED
[2017-06-03] MEDS: ATORVASTATIN CALCIUM 10MG TABLET PO SCH (21:09)
[2017-06-04] VITALS: BP 114/35
[2017-06-04 04:00] VITALS: BP 110/33
[2017-06-04] MEDS: LEVOTHYROXINE SODIUM 25MCG TABLET PO SCH (06:30)
[2017-06-04 08:43] VITALS: BP 144/48
[2017-06-04] MEDS: FOLIC ACID/VITAMIN B COMP W-C TABLET PO SCH (08:52)
[2017-06-04] MEDS: ALLOPURINOL 100 MG TABLET PO SCH (08:52)
[2017-06-04] MEDS: MEGESTROL ACETATE 400 MG/10 ML UDC PO SCH (08:52)
[2017-06-04] MEDS: ACETAMINOPHEN 325MG TABLET NG PRN (08:54)
[2017-06-04 11:01] VITALS: BP_SYST 118; BP_SYST 144; BP_DIAS 48; BP_DIAS 49
[2017-06-04 12:00] VITALS: BP 118/49
== END 2017-06-04 11:58 | disposition home or self-care (01) | DRG 291 ==
LOC: ER 13:02 → 8WST 15:40 → EDBEDREQ 15:45 → EDBEDREQTM 15:45 → ER 16:12 → CANRESERV 16:23 → ENRESERV 16:23
PROVIDERS: ADMIT Internal Medicine Pulmonary Disease; ATTEND Internal Medicine Pulmonary Disease
PROC: 30233N1 Transfusion of Nonautologous Red Blood Cells into Peripheral Vein, Percutaneous Approach (ICD-10-PCS; 2017-05-26)
PROC: 5A1D70Z Performance of Urinary Filtration, Intermittent, Less than 6 Hours Per Day (ICD-10-PCS; 2017-05-27)
PROC: 5A1D70Z Performance of Urinary Filtration, Intermittent, Less than 6 Hours Per Day (ICD-10-PCS; 2017-05-29)
PROC: 30233R1 Transfusion of Nonautologous Platelets into Peripheral Vein, Percutaneous Approach (ICD-10-PCS; principal; 2017-05-30)
PROC: 0DH63UZ Insertion of Feeding Device into Stomach, Percutaneous Approach (ICD-10-PCS; 2017-05-30)
PROC: 5A1D70Z Performance of Urinary Filtration, Intermittent, Less than 6 Hours Per Day (ICD-10-PCS; 2017-05-31)
PROC: 5A1D70Z Performance of Urinary Filtration, Intermittent, Less than 6 Hours Per Day (ICD-10-PCS; 2017-06-03)
DX: I13.2 Hypertensive heart and chronic kidney disease with heart failure and with stage 5 chronic kidney disease, or end stage renal disease (principal); N18.6 End stage renal disease; R64 Cachexia; E44.0 Moderate protein-calorie malnutrition; C85.90 Non-Hodgkin lymphoma, unspecified, unspecified site; D69.59 Other secondary thrombocytopenia; E87.2 Acidosis; E83.39 Other disorders of phosphorus metabolism; I48.91 Unspecified atrial fibrillation; N03.9 Chronic nephritic syndrome with unspecified morphologic changes; I47.1 Supraventricular tachycardia; C64.9 Malignant neoplasm of unspecified kidney, except renal pelvis; I50.30 Unspecified diastolic (congestive) heart failure; K62.3 Rectal prolapse; E74.39 Other disorders of intestinal carbohydrate absorption; E78.5 Hyperlipidemia, unspecified; K29.60 Other gastritis without bleeding; D63.1 Anemia in chronic kidney disease; E03.9 Hypothyroidism, unspecified; Z90.5 Acquired absence of kidney; Z99.2 Dependence on renal dialysis; Z85.528 Personal history of other malignant neoplasm of kidney; Z92.21 Personal history of antineoplastic chemotherapy; Z68.23 Body mass index [BMI] 23.0-23.9, adult
CPT/HCPCS: 36415; 36430; 71045; 80048; 82140; 82550; 82553; 83605; 83735; 83880; 84100; 84439; 84443; 84484; 86850; 86900; 86920; 86945; 93005; 93306; 93970; 97162; 97166; 97530; 99285; J0885; J1956; J2250; J3010; J3490; J7030; J7040; J7050; J7060; P9016; P9034